=== PATIENT | male | born 1990 | race American Indian/Alaskan Native ===

== ENCOUNTER 2020-05-23 18:32 | Emergency (ER) | payer OTHER ==
[2020-05-23 18:40] VITALS: BP 136/71
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
== END 2020-05-23 20:00 | disposition home or self-care (01) ==
LOC: ED 18:32
DX: S39.012A Strain of muscle, fascia and tendon of lower back, initial encounter (principal); Z98.890 Other specified postprocedural states; Z79.899 Other long term (current) drug therapy; V49.49XA Driver injured in collision with other motor vehicles in traffic accident, initial encounter; Y93.89 Activity, other specified; Y92.410 Unspecified street and highway as the place of occurrence of the external cause; Y99.8 Other external cause status
CPT/HCPCS: 72100; 99282

== ENCOUNTER 2020-10-03 21:27 | Emergency (ER) | payer OTHER ==
--- NOTE | 2020-10-03 22:42 | XRay Report ---
CHEST 2 VIEWS INDICATION / CLINICAL INFORMATION: chest pain. COMPARISON: None available. FINDINGS: SUPPORT DEVICES: None. HEART / MEDIASTINUM: No significant abnormality. LUNGS / PLEURA: No significant pulmonary or pleural abnormality. No pneumothorax. ADDITIONAL FINDINGS: No significant additional findings. IMPRESSION: 1. No acute findings. Signer Name: Ken Duran MD Signed: 10/03/2020 10:38 PM Workstation Name: [id number]
--- NOTE | 2020-10-03 22:48 | Emergency Department Report ---
ED Chest Pain HPI - General Chief Complaint: Chest Pain Stated Complaint: CHEST PAIN Time Seen by Provider: 10/03/20 22:40 Source: patient Mode of arrival: Ambulatory Limitations: No Limitations - History of Present Illness Initial Comments: 30-year-old -[place] male presents to the emergency room stating about 730 today he started having left chest pain and had vomited x1 patient states that his chest feels like [id number]. He denies any nausea vomiting at this time. He reports that the pain is sharp denies any shortness of breath. Patient reports a past medical history of chronic knee pain chronic back pain and asthma. He denies any surgeries. Denies any known drug allergies. States his medications of Robaxin naproxen and albuterol. He is followed by the [facility] administration. MD Complaint: chest pain -: This evening Time: 19:30 Onset: during rest Pain Location: substernal, left chest Pain Radiation: LUE Severity: moderate Severity scale (0 -10): 7 Quality: sharp Consistency: constant Improves With: nothing Worsens With: nothing re: nausea, vomting (X1) Other Symptoms: denies: cough, fever, syncope, rash, acid taste in mouth, leg swelling, palpitations, burping Treatments Prior to Arrival: none Aspirin use within the Past 7 Days: (0) No - Related Data Previous Rx's Medication Instructions Recorded Last Taken Type Naproxen [EC-Naprosyn] 500 mg PO BID PRN #14 tablet. 05/23/20 Unknown Rx methOCARBAMOL [Robaxin TAB] 500 mg PO BID PRN #14 tab 05/23/20 Unknown Rx Allergies Allergy/AdvReac Type Severity Reaction Status Date / Time No Known Allergies Allergy Unverified 05/23/20 18:35 Heart Score - HEART Score History: Slightly suspicious EKG: Normal Age: < 45 Risk factors: No known risk factors Troponin: < normal limit HEART Score: 0 ED Review of Systems ROS: Stated complaint: CHEST PAIN Other details as noted in HPI Comment: All other systems reviewed and negative ED Past Medical Hx - Past Medical History Previous Medical History?: Yes Hx Asthma: Yes Additional medical history: CHRONIC BACK PAIN - Surgical History Past Surgical History?: Yes Additional Surgical History: DENTAL - Social History Smoking Status: Current Every Day Smoker - Medications Home Medications: Home Medications Medication Instructions Recorded Confirmed Last Taken Type Naproxen [EC-Naprosyn] 500 mg PO BID PRN #14 tablet. 05/23/20 Unknown Rx methOCARBAMOL [Robaxin TAB] 500 mg PO BID PRN #14 tab 05/23/20 Unknown Rx ED Physical Exam - General Limitations: No Limitations General appearance: alert, in no apparent distress - Head Head exam: Present: atraumatic, normocephalic - Eye Eye exam: Present: normal appearance - ENT ENT exam: Present: mucous membranes moist - Neck Neck exam: Present: normal inspection, full ROM - Respiratory Respiratory exam: Present: normal lung sounds bilaterally, chest wall tenderness (Left upper chest) - Cardiovascular Cardiovascular Exam: Present: regular rate, normal rhythm - GI/Abdominal GI/Abdominal exam: Present: soft. Absent: distended, tenderness - Extremities Exam Extremities exam: Present: normal inspection, full ROM. Absent: pedal edema - Back Exam Back exam: Present: normal inspection, full ROM. Absent: tenderness - Neurological Exam Neurological exam: Present: alert, oriented X3, normal gait - Psychiatric Psychiatric exam: Present: normal affect, normal mood - Skin Skin exam: Present: warm, dry, intact, normal color. Absent: rash ED Course Vital Signs 10/03/20 21:38 Temperature 98.5 F Pulse Rate 64 Respiratory 18 Rate Blood Pressure 127/76 O2 Sat by Pulse 97 Oximetry GRADY score - Grady Score Age > 65: (0) No Aspirin use within the Past 7 Days: (0) No 3 or more CAD Risk Factors: (0) No 2 or more Angina events in past 24 hrs: (0) No Known CAD with more than 50% Stenosis: (0) No Elevated Cardiac Markers: (0) No ST Deviation Greater than 0.5mm: (0) No GRADY Score: 0 ED Medical Decision Making - Lab Data Result diagrams: 10/03/20 22:54 10/03/20 22:54 Laboratory Tests 10/03/20 10/03/20 10/04/20 22:54 22:54 00:33 WBC 10.2 RBC 5.05 H Hgb 14.3 Hct 42.4 MCV 84 MCH 28 MCHC 34 RDW 13.0 L Plt Count 319 Lymph % (Auto) 32.1 [place] % (Auto) 8.3 H Eos % (Auto) 1.9 Baso % (Auto) 0.2 Lymph # (Auto) 3.3 [place] # (Auto) 0.8 Eos # (Auto) 0.2 Baso # (Auto) 0.0 Seg Neutrophils % 57.5 Seg Neutrophils # 5.8 Sodium 137 Potassium 4.0 Chloride 100.9 Carbon Dioxide 27 Anion Gap 13 BUN 11 Creatinine 1.0 Estimated GFR > 60 BUN/Creatinine Ratio 11 Glucose 91 Calcium 9.2 Total Bilirubin 0.50 AST 19 ALT 32 Alkaline Phosphatase 97 Troponin T < 0.010 < 0.010 Total Protein 6.6 Albumin 4.2 Albumin/Globulin Ratio 1.8 - EKG Data EKG shows normal: sinus rhythm Rate: normal - Radiology Data Radiology results: report reviewed Patient: GEETA BISHOP MR#: [id number] : 1990 Acct:[id number] Age/Sex: 30 / M ADM Date: 10/03/20 Loc: ED Attending Dr: Ordering Physician: LUIS HOOVER III, MD Date of Service: 10/03/20 Procedure(s): XR chest routine 2V Accession Number(s): [id number] cc: LUIS HOOVER III, MD Fluoro Time In Minutes: CHEST 2 VIEWS INDICATION / CLINICAL INFORMATION: chest pain. COMPARISON: None available. FINDINGS: SUPPORT DEVICES: None. HEART / MEDIASTINUM: No significant abnormality. LUNGS / PLEURA: No significant pulmonary or pleural abnormality. No pneumothorax. ADDITIONAL FINDINGS: No significant additional findings. IMPRESSION: 1. No acute findings. Signer Name: Ken Duran MD Signed: 10/03/2020 10:38 PM Workstation Name: [id number] Transcribed By: SS Dictated By: Ken Duran MD Electronically Authenticated By: Ken Duran MD Signed Date/Time: 10/03/202237 DD/ 37 TD/TT: Print Cancel - Medical Decision Making 30-year-old -[place] male presents to the emergency room stating about 730 today he started having left chest pain and had vomited x1 patient states that his chest feels like [id number]. He denies any nausea vomiting at this time. He reports that the pain is sharp denies any shortness of breath. Patient reports a past medical history of chronic knee pain chronic back pain and asthma. He denies any surgeries. Denies any known drug allergies. States his medications of Robaxin naproxen and albuterol. He is followed by the [facility] adm in[facility]. I discussed with the patient and/or caregiver the rapid rule out protocol to for acute coronary syndrome and myocardial infarction and that given the findings during his ED evaluation, there is no clinical EKG or laboratory evidence of injury to the heart. I further explained that there is no current valuated protocol that can reliable risk stratify a patient into a very low risk category of less than a 1 to 2% possibility of significant cardiac disease. Therefore it remains possible that there is underlying pathology that may develop into a acute coronary syndrome at some point in the future. I discussed this with the patient and/or caregiver at length, as well as the necessary steps that may include follow-up, stress test, cardiac imaging and further lab evaluation for further assessment. The patient and/or caregiver have expressed a clear and thorough understanding and agreed to the follow up as instructed Critical care attestation.: If time is entered above; I have spent that time in minutes in the direct care of this critically ill patient, excluding procedure time. ED Disposition Clinical Impression: Atypical chest pain, Costochondritis, acute Disposition: DC-01 TO HOME OR SELFCARE Is pt being admited?: No Does the pt Need Aspirin: No Condition: Stable Instructions: Nonspecific Chest Pain, Adult, Costochondritis Additional Instructions: Labs are within normal limits chest x-ray is negative EKG is normal. I recommend Tylenol ibuprofen for chest wall tenderness. Follow-up with a electronic industrial controls mechanic and a primary care provider I have listed their information below for your convenience. Referrals: FOREIGN BALL MD [Primary Care Provider] - 3-5 Days [facility] [Provider Group] - 3-5 Days NORMA KOWALSKI MD [Staff Physician] - 3-5 Days Forms: Work/School Release Form(ED)
[2020-10-03 23:55] LABS: Basophils % (Auto) 0.2 % (0.0-1.8); Eosinophils # (Auto) 0.2 K/mm3 (0.0-0.4); Eosinophils % (Auto) 1.9 % (0.0-4.3); Hematocrit 42.4 % (35.5-45.6); Hemoglobin 14.3 gm/dl (11.8-15.2); Lymphocytes # (Auto) 3.3 K/mm3 (1.2-5.4); Lymphocytes % (Auto) 32.1 % (13.4-35.0); Mean Corpuscular HGB Conc 34 % (32-34); Mean Corpuscular Volume 84 fl (84-94); Monocytes # (Auto) 0.8 K/mm3 (0.0-0.8); Monocytes % (Auto) 8.3 % (0.0-7.3); Platelet Count 319 K/mm3 (140-440); Red Blood Count 5.05 M/mm3 (3.65-5.03)
[2020-10-04 00:22] LABS: Alanine Aminotransferase 32 units/L (7-56); Albumin 4.2 g/dL (3.9-5); BUN/Creatinine Ratio 11; Blood Urea Nitrogen 11 mg/dL (9-20); Calcium 9.2 mg/dL (8.4-10.2); Hemolysis Index 5
[2020-10-04 02:25] VITALS: BP 130/76
== END 2020-10-04 02:20 | disposition home or self-care (01) ==
LOC: ED 21:27
DX: M94.0 Chondrocostal junction syndrome [Tietze] (principal); R07.89 Other chest pain; J45.909 Unspecified asthma, uncomplicated; F17.200 Nicotine dependence, unspecified, uncomplicated; Z98.890 Other specified postprocedural states; Z79.899 Other long term (current) drug therapy
CPT/HCPCS: 36415; 71046; 80053; 84484; 85025; 93005

== ENCOUNTER 2020-11-18 16:10 | Emergency (ER) | payer SELFPAY ==
[2020-11-18 16:46] VITALS: BP 123/73
[2020-11-18] MEDS ORDERED: dexAMETHasone 20 MG/5 ML VIAL IM ONE (22:08)
[2020-11-18] MEDS ORDERED: IBUPROFEN 800 MG TAB PO ONE (22:09)
[2020-11-18] MEDS ORDERED: ALBUTEROL 2.5 MG/3 ML NEBU IH ONE (22:09)
--- NOTE | 2020-11-18 22:36 | XRay Report ---
CHEST 2 VIEWS INDICATION / CLINICAL INFORMATION: cough productive green. COMPARISON: 10/03/2020. FINDINGS: SUPPORT DEVICES: None. HEART / MEDIASTINUM: No significant abnormality. LUNGS / PLEURA: No significant pulmonary or pleural abnormality. No pneumothorax. ADDITIONAL FINDINGS: No significant additional findings. IMPRESSION: No acute cardiopulmonary abnormality. Signer Name: Chuckie Aleman MD Signed: 11/18/2020 10:32 PM Workstation Name: [id number]
--- NOTE | 2020-11-18 22:46 | Emergency Department Report ---
ED General Adult HPI - General Chief complaint: Dyspnea/Respdistress Stated complaint: ASTHMA, TIGHTNESS IN CHEST, COUGHING Time Seen by Provider: 11/18/20 22:08 Source: patient Mode of arrival: Ambulatory Limitations: No Limitations - History of Present Illness Initial comments: Patient is a 30-year-old male with history of chronic bronchitis who presents for cough productive yellow-green x1 week. Patient states nocturnal head congestion and sinus pressure. Patient denies shortness of breath, there is bilateral upper expiratory wheezes rated at 4/10. Patient states out of asthma medication. There is been no fever, chills, nausea or vomiting.. Patient requesting nebulizer treatments as this is a treatment for acute flares for this patient. - Related Data Previous Rx's Medication Instructions Recorded Last Taken Type Naproxen [EC-Naprosyn] 500 mg PO BID PRN #14 tablet. 05/23/20 Unknown Rx methOCARBAMOL [Robaxin TAB] 500 mg PO BID PRN #14 tab 05/23/20 Unknown Rx Albuterol Mdi (or & Nicu Only) 2 puff IH QID PRN #8.5 gram 11/18/20 Unknown Rx [ProAir HFA Inhaler] Azithromycin 500 mg PO QDPC #5 tablet 11/18/20 Unknown Rx Ibuprofen [Motrin 800 MG tab] 800 mg PO Q8HR PRN #1000 tablet 11/18/20 Unknown Rx predniSONE [Deltasone] 40 mg PO DAILY PRN 5 Days #10 11/18/20 Unknown Rx tablet Allergies Allergy/AdvReac Type Severity Reaction Status Date / Time No Known Allergies Allergy Unverified 05/23/20 18:35 ED Review of Systems ROS: Stated complaint: ASTHMA, TIGHTNESS IN CHEST, COUGHING Other details as noted in HPI Constitutional: denies: chills, fever Eyes: denies: eye pain, eye discharge, vision change ENT: congestion. denies: ear pain, throat pain Respiratory: cough. denies: see HPI, shortness of breath, wheezing Cardiovascular: denies: chest pain, palpitations Endocrine: no symptoms reported Gastrointestinal: denies: abdominal pain, nausea, vomiting, diarrhea Genitourinary: denies: urgency, dysuria Musculoskeletal: denies: back pain, joint swelling, arthralgia Skin: as per HPI Neurological: denies: headache, weakness, paresthesias Psychiatric: denies: anxiety, depression Hematological/Lymphatic: denies: easy bleeding, easy bruising ED Past Medical Hx - Past Medical History Previous Medical History?: Yes Hx Asthma: Yes Additional medical history: CHRONIC BACK PAIN - Surgical History Past Surgical History?: No Additional Surgical History: DENTAL - Social History Smoking Status: Current Every Day Smoker - Medications Home Medications: Home Medications Medication Instructions Recorded Confirmed Last Taken Type Naproxen [EC-Naprosyn] 500 mg PO BID PRN #14 tablet.dr 05/23/20 Unknown Rx methOCARBAMOL [Robaxin TAB] 500 mg PO BID PRN #14 tab 05/23/20 Unknown Rx Albuterol Mdi (or & Nicu Only) 2 puff IH QID PRN #8.5 gram 11/18/20 Unknown Rx [ProAir HFA Inhaler] Azithromycin 500 mg PO QDPC #5 tablet 11/18/20 Unknown Rx Ibuprofen [Motrin 800 MG tab] 800 mg PO Q8HR PRN #1000 tablet 11/18/20 Unknown Rx predniSONE [Deltasone] 40 mg PO DAILY PRN 5 Days #10 11/18/20 Unknown Rx tablet ED Physical Exam - General Limitations: No Limitations General appearance: alert, in no apparent distress - Head Head exam: Present: atraumatic, normocephalic - Eye Eye exam: Present: normal appearance, PERRL, EOMI Pupils: Present: normal accommodation - ENT ENT exam: Present: normal exam, normal orophraynx, mucous membranes moist, TM's normal bilaterally - Neck Neck exam: Present: normal inspection, full ROM. Absent: tenderness, meningismus, lymphadenopathy, thyromegaly - Respiratory Respiratory exam: Present: normal lung sounds bilaterally, wheezes, stridor, chest wall tenderness, accessory muscle use. Absent: respiratory distress - Cardiovascular Cardiovascular Exam: Present: regular rate, normal rhythm - GI/Abdominal GI/Abdominal exam: Present: soft, normal bowel sounds. Absent: distended, tenderness, guarding, rebound, rigid, bruit, hernia - Rectal Rectal exam: Present: deferred - exam: Present: normal inspection - Extremities Exam Extremities exam: Present: normal inspection, full ROM, normal capillary refill. Absent: tenderness, pedal edema - Back Exam Back exam: Present: normal inspection, full ROM, muscle spasm. Absent: tenderness, CVA tenderness (R), CVA tenderness (L), vertebral tenderness - Neurological Exam Neurological exam: Present: alert, oriented X3 - Psychiatric Psychiatric exam: Present: normal affect, normal mood - Skin Skin exam: Present: warm, dry, intact, normal color, diaphoretic, petechiae. Absent: rash ED Course Vital Signs 11/18/20 16:45 Temperature 99.3 F Pulse Rate 82 Respiratory 20 Rate Blood Pressure 123/73 O2 Sat by Pulse 97 Oximetry ED Medical Decision Making - Radiology Data Radiology results: report reviewed, image reviewed INDICATION / CLINICAL INFORMATION: cough productive green. COMPARISON: 10/03/2020. FINDINGS: SUPPORT DEVICES: None. HEART / MEDIASTINUM: No significant abnormality. LUNGS / PLEURA: No significant pulmonary or pleural abnormality. No pneumothorax. ADDITIONAL FINDINGS: No significant additional findings. IMPRESSION: No acute cardiopulmonary abnormality. Signer Name: Candice Aleman MD Signed: 11/18/2020 10:32 PM Workstation Name: [id number] Transcribed By: SS Dictated By: CANDICE ALEMAN Electronically Authenticated By: CANDICE ALEMAN Signed Date/Time: 11/18/202231 DD/ 30 TD/TT: - Medical Decision Making Chest x-ray negative for opacities or infiltrates./pt is ambulatory at this time. Critical care attestation.: If time is entered above; I have spent that time in minutes in the direct care of this critically ill patient, excluding procedure time. ED Disposition Clinical Impression: Bronchitis Disposition: DC-01 TO HOME OR SELFCARE Is pt being admited?: No Does the pt Need Aspirin: No Condition: Stable Instructions: Chronic Bronchitis (ED), Upper Respiratory Infection, Adult, Ppni-wk-Cnha, How to Use a Metered Dose Inhaler Additional Instructions: take medicatiion as percribed , Prescriptions: Azithromycin 500 mg PO QDPC #5 tablet predniSONE [Deltasone] 40 mg PO DAILY PRN 5 Days #10 tablet PRN Reason: wheezing sob Ibuprofen [Motrin 800 MG tab] 800 mg PO Q8HR PRN #1000 tablet PRN Reason: pain Albuterol Mdi (or & Nicu Only) [ProAir HFA Inhaler] 2 puff IH QID PRN #8.5 gram PRN Reason: Shortness Of Breath Referrals: NORMA KOWALSKI MD [Staff Physician] - 3-5 Days Forms: Work/School Release Form(ED) Time of Disposition: 23:05
== END 2020-11-18 23:45 | disposition home or self-care (01) ==
LOC: ED 16:10
DX: J40 Bronchitis, not specified as acute or chronic (principal); F17.200 Nicotine dependence, unspecified, uncomplicated; Z79.899 Other long term (current) drug therapy; Z98.890 Other specified postprocedural states
CPT/HCPCS: 71046; 94640; 96372; 99283; J1100; 94644